=== PATIENT | male | born 1990 | race Caucasian/White ===

== ENCOUNTER 2017-01-02 17:34 | Emergency (ER) | payer SELFPAY ==
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
== END 2017-01-02 17:44 | disposition disaster alternative care site (69) ==
LOC: GACC 17:34
DX: S00.83XA Contusion of other part of head, initial encounter (principal); M25.562 Pain in left knee; Y04.2XXA Assault by strike against or bumped into by another person, initial encounter